=== PATIENT | female | born 2000 | race Caucasian/White ===

== ENCOUNTER 2023-06-16 17:53 | Emergency (ER) | payer OTHER ==
[2023-06-16 18:29] VITALS: O2SAT 100
[2023-06-16] MEDS ORDERED: TORAdol 30 mg Injection IM ONE (19:34)
[2023-06-16 19:35] VITALS: BP 105/62; PULSE 72
[2023-06-16] MEDS ORDERED: TORAdol 30 mg Injection ONE (19:36)
--- NOTE | 2023-06-16 19:38 | ERPHSYRPT ---
- History of Present Illness Time Seen by Provider: 06/16/23 19:35 Source: patient Patient Subjective Stated Complaint: Pt states "I was always told not to clean my ears with a q tip so I was using a ryne pin and I fell asleep with it in my ear and when I woke up there was blood on my shirt and my right ear is killing me." Triage Nursing Assessment: Pt presented alert and oriented X 3, skin pwd. Pt ambulates with an upright steady gait, able to speak in clear full sentences pt resting comfortably on the bed. Physician History: 22-year-old female presents to our ED for evaluation of pain in her right ear. Patient was cleaning her ear with a Ryne pin. Patient fell asleep with a Ryne pin in her ear and woke up with blood in her ear. Patient has severe pain. Some decreased hearing acuity. Patient's pain radiates down her jaw. No other complaints. No blunt trauma. No fever. No nausea vomiting or diaphoresis. Patient is otherwise healthy. She voices no other complaints or concerns at this time. Timing/Duration: abrupt onset Severity: moderate Prearrival Treatment: no prearrival treatment Modifying Factors: Improves With: nothing Associated Symptoms: denies symptoms Allergies/Adverse Reactions: cephalexin [From Keflex] Allergy (Severe, Verified 06/16/23 18:29) anaphylactic Home Medications: Sertraline HCl [Zoloft] 25 mg PO 06/16/23 [History] Sumatriptan Succinate [Imitrex] 50 mg PO DAILY PRN 06/16/23 [History] Hx Tetanus, Diphtheria Vaccination/Date Given: No Hx Influenza Vaccination/Date Given: No Hx Pneumococcal Vaccination/Date Given: No Immunizations Up to Date: No Travel Risk - International Travel Have you traveled outside of the country in past 3 weeks: No - Coronavirus Screening Are you exhibiting any of the following symptoms?: No Close contact with a COVID-19 positive Pt in past 14-21 Days: No - Vaccine Status Have you recieved a Covid-19 vaccination: No - Review of Systems Constitutional: No Symptoms, No Fever, No Chills Eyes: No Symptoms Ears, Nose, & Throat: No Symptoms Respiratory: No Symptoms, No Cough, No Dyspnea Cardiac: No Symptoms, No Chest Pain, No Edema, No Syncope Abdominal/Gastrointestinal: No Symptoms, No Abdominal Pain, No Nausea, No Vomiting, No Diarrhea Genitourinary Symptoms: No Symptoms, No Dysuria Musculoskeletal: No Symptoms, No Back Pain, No Neck Pain Skin: No Symptoms, No Rash Neurological: No Symptoms, No Dizziness, No Focal Weakness, No Sensory Changes Psychological: No Symptoms Endocrine: No Symptoms Hematologic/Lymphatic: No Symptoms Immunological/Allergic: No Symptoms All Other Systems: Reviewed and Negative - Past Medical History Pertinent Past Medical History: Yes Psycho-Social History: Anxiety, Depression - Past Surgical History Past Surgical History: Yes Other Surgical History: face - Social History Smoking Status: Current every day smoker How long have you smoked: years Exposure to second hand smoke: Yes Drug Use: none Patient Lives Alone: No - Female History Hx Last Menstrual Period: 06/07/2023 Hx Now: No - Nursing Vital Signs Nursing Vital Signs: Initial Vital Signs Temperature 97.2 F 06/16/23 18:24 Pulse Rate 86 06/16/23 18:24 Respiratory Rate 20 06/16/23 18:24 Blood Pressure 123/82 06/16/23 18:24 O2 Sat by Pulse Oximetry 100 06/16/23 18:24 Pain Scale Pain Intensity 4 - Physical Exam General Appearance: no apparent distress, alert Eye Exam: bilateral eye: normal inspection, PERRL, EOMI Ear Exam: right ear: TM perforation, left ear: auricle normal, canal normal, TM normal, bleeding Nasal Exam: normal inspection Throat Exam: pharynx normal, moist mucus membranes, No tonsillar exudate Neck Exam: supple Cardiovascular/Respiratory Exam: normal breath sounds, regular rate/rhythm Abdominal Exam: non-tender, soft Neurologic Exam: alert, oriented x 3, sensation nml, No motor deficits Skin Exam: normal color, warm, dry SpO2 Interpretation: normal SpO2: 100 O2 Delivery: Room Air - Course Nursing assessment & vital signs reviewed: Yes Ordered Tests: Medication Summary Discontinued Medications Generic Name Dose Route Start Last Admin Trade Name Razaq PRN Reason Stop Dose Admin Ketorolac Tromethamine 30 mg 06/16/23 19:34 Ketorolac Tromethamine 30 Mg/Ml Inj IM 06/16/23 19:35 STAT ONE Ketorolac Tromethamine Confirm 06/16/23 19:36 Ketorolac Tromethamine 30 Mg/Ml Inj Administered 06/16/23 19:37 Dose 30 mg .ROUTE .STK-MED ONE - Progress Progress: improved Progress Note: 22-year-old female presents to our ED for evaluation of right ear pain after falling asleep with a Ryne pin in her right ear. Physical exam reveals a perforation of the right TM. No active infection. Patient given a IM injection of Toradol for pain control. Patient denies the possibility of . A prescription for ofloxacin 5 drops in the involved ear twice a day for 3 to 5 days was prescribed. Patient given referral to Dr. Cardoza ENT physician. Patient agrees to follow-up with ENT within 48 hours for evaluation. Portions of this note were created with voice recognition technology. There may be grammatical, spelling, punctuation or sound alike errors Complexity of problem addressed is low acute uncomplicated Complex of data reviewed and analyzed is none. No specialized testing ordered. Diagnosis made based on history and physical exam. Risk of complication and or risk morbidity/mortality of patient management is moderate. A prescription for ofloxacin was forwarded to patient's pharmacy. We will discharge home. Patient agrees to follow-up with ENT within 48 hours for reevaluation. Vital stable. Time spent to discharge patient approximately 15 minutes. No social determinants of health present to impede follow-up. Patient voices no other complaints or concerns at this time. 06/16/23 19:43 Counseled pt/family regarding: diagnosis, need for follow-up - Departure Departure Disposition: Home Clinical Impression: Perforated eardrum Condition: Stable Critical Care Time: No Referrals: ROSELIA MOE FNP [Primary Care Provider] - Follow up/PCP as directed DUYEN CARDOZA [NON-STAFF Y W/O PRIVILEGES] - Follow up/PCP as directed Instructions: Ruptured Eardrum (DC) Additional Instructions: Discharge/Care Plan VUDRAKE MOSS was seen on 06/16/23 in the Emergency Room. The patient was counseled regarding Diagnosis,Lab results, Imaging studies, need for follow up and when to return to the Emergency Room. Prescriptions given: Discharge Note I have spoken with the patient and/or caregivers. I have explained the patient's condition, diagnosis and treatment plan based on the information available to me at this time. I have answered the patient's and/or caregiver's questions and addressed any concerns. The patient and/or caregivers have as good understanding of the patient's diagnosis, condition and treatment plan as can be expected at this point. The vital signs have been stable. The patient's condition is stable and appropriate for discharge from the emergency department. The patient will pursue further outpatient evaluation with the primary care physician or other designated or consulting physician as outlined in the discharge instructions. The patient and/or caregivers are agreeable to this plan of care and follow-up instructions have been explained in detail. The patient and/or caregivers have received these instruction. The patient/and or caregivers are aware that any significant change in condition or worsening of symptoms should prompt an immediate return to this or the closest emergency department or call 911. Prescriptions: Ofloxacin Otic 5 ml [Floxin Otic 5 ML] 5 ml OT BID 5 Days #5 drp
== END 2023-06-16 19:48 | disposition home or self-care (01) ==
LOC: ED 17:53
DX: S09.21XA Traumatic rupture of right ear drum, initial encounter (principal); Z79.899 Other long term (current) drug therapy; Z28.310 Unvaccinated for COVID-19; Z72.0 Tobacco use
CPT/HCPCS: 96372; 99282; J1885